=== PATIENT | female | born 1965 | race Two or more races ===

== ENCOUNTER 2019-02-21 12:00 | Outpatient (CLI) | payer OTHER | END 2019-02-21 23:59 | disposition home or self-care (01) | LOC: WOU 12:00 | PROVIDERS: ATTEND Surgery | DX: N61.0 Mastitis without abscess (principal); S21.0 Open wound of breast; W26.8XXS Contact with other sharp object(s), not elsewhere classified, sequela; L03.313 Cellulitis of chest wall; N63.0 Unspecified lump in unspecified breast | CPT/HCPCS: 99215; J3490; G0463 ==